=== PATIENT | female | born 1975 | race African-American/Black ===

== ENCOUNTER 2017-11-22 21:33 | Emergency (ER) | payer OTHER ==
[~2017-11-22 21:33] MED LIST: COLA100C5 PO
[2017-11-22 21:36] VITALS: BP 112/84; PULSE 100; RESP 16; TEMP 98.8; O2SAT 99
[2017-11-22] MEDS ORDERED: BACT800T5 PO (21:55)
[2017-11-22] MEDS ORDERED: MAXA10TA2 PO (21:55)
[2017-11-22] MEDS ORDERED: ACETAMINOPHEN/HYDROcodone 325 MG/5 MG TAB PO ONE (23:45)
[2017-11-22] MEDS ORDERED: CLINDAMYCIN 600 MG/NS PREMIX 50 ML IV ONE (23:45)
--- NOTE | 2017-11-22 23:46 | PD ---
HPI Chief Complaint: Skin Problem Time Seen by Provider: 23:26 Travel History International Travel<30 days: No Contact w/Intl Traveler<30days: No Traveled to known affect area: No History of Present Illness HPI 42-year-old black female presents to emergency department with a complaint of a skin infection under her right breast for the past week. She was seen by her doctor on Tuesday who started her on Bactrim and squeezed the area and collected a culture. Patient states that the area has become increasingly tender. She has had some subjective fever. She denies any nausea vomiting. No abdominal pain or urinary symptoms. Patient does have a history of the lump on her left breast which was excised but she does not know exactly what it was but she knows of that it was benign. Patient denies any history of skin infections in the past. Symptoms are mild. No alleviating symptoms. No exacerbating symptoms. PFSH Past Medical History Migraines: Yes Tetanus Vaccination: < 5 Years Influenza Vaccination: No ?: Not LMP: Today Past Surgical History Section: Yes (1994) Other Surgery: Yes (LEFT BREAST LUMPECTOMY 2010) Social History Alcohol Use: No Tobacco Use: No Substance Use: No Allergies-Medications (Allergen,Severity, Reaction): Coded Allergies: No Known Allergies (Unverified , 09/22/17) Reported Meds & Prescriptions Reported Meds & Active Scripts Active Colace (Docusate Sodium) 100 Mg Capsule 1 Cap PO BID 14 Days Reported Maxalt (Rizatriptan Benzoate) 10 Mg Tab 10 Mg PO Bactrim DS (Sulfamethoxazole-Trimethoprim) 800-160 Mg Tab 1 Tab PO BID Review of Systems Except as stated in HPI: all other systems reviewed are Neg Physical Exam Narrative GENERAL: This is a well-nourished, well-developed patient, in no apparent distress. Patient is examined with a female nurse. SKIN: The patient has an area of erythema, warmth and induration under the right breast. There is a small nidus which appears to be a infected sebaceous cyst. There is no fluctuance. The area measures approximately 3 x 3 cm. HEAD: Atraumatic. Normocephalic. EYES: PERRL, EOMI, no discharge or injection. No scleral icterus. EARS: Clear NOSE: Nasal turbinates appear normal. THROAT: Mucosa pink and moist. Airway patent. NECK: Trachea midline. supple, moves head freely. LUNGS: Clear to auscultation. CV: Regular in rhythm. ABDOMEN: Soft nontender. EXT: No clubbing cyanosis or edema. Data Data Last Documented VS Vital Signs Date Time Temp Pulse Resp B/P (MAP) Pulse Ox O2 Delivery O2 Flow Rate FiO2 11/22/17 21:36 98.8 100 16 112/84 (93) 99 Orders Orders Iv Access Insert/Monitor (11/22/17 23:31) Complete Blood Count With Diff (11/22/17 23:31) Basic Metabolic Panel (Bmp) (11/22/17 23:31) Clindamycin 600 Mg/Ns Premix (Cleocin 60 (11/22/17 23:45) Acetamin-Hydrocod 325-5 Mg ([place] 5-325 (11/22/17 23:45) MDM Medical Decision Making Medical Screen Exam Complete: Yes Emergency Medical Condition: Yes Medical Record Reviewed: Yes Differential Diagnosis MDM: High Differential diagnoses: Abscess, folliculitis, cellulitis, lymphangitis, abrasion, contact dermatitis Narrative Course IV access is obtained. CBC chemistry ordered. Patient given clindamycin 600 mg IV. Lortab 5 mg by mouth. Patient appears to have a infected sebaceous cyst. At this time the patient is currently on Bactrim DS. We will add and clindamycin and have her follow-up with her family doctor or plastics surgeon for reevaluation. Diagnosis Primary Impression: Infected sebaceous cyst Patient Instructions: Narcotic given in the ED, General Instructions Med/Other Pt SpecificInfo: Prescription(s) given, Wound Care Disposition: 01 DISCHARGE HOME Condition: Stable Harjeet Mead Nov 22, 2017 23:46
[2017-11-23 00:42] LABS: BICARBONATE 28.5 MEQ/L (21.0-32.0); CREATININE 1.11 MG/DL (0.50-1.00)
[2017-11-23 01:09] LABS: AUTOMATED NEUTROPHIL # 2.6 TH/MM3 (1.8-7.7); BASOPHIL # 0.1 TH/MM3 (0-0.2); EOSINOPHIL # 0.1 TH/MM3 (0-0.4); EOSINOPHIL % 2.9 % (0.0-4.0); HEMATOCRIT 35.6 % (35.0-46.0); HEMOGLOBIN 12.1 GM/DL (11.6-15.3); LYMPH % 35.9 % (9.0-44.0); LYMPHOCYTE # 1.8 TH/MM3 (1.0-4.8); MEAN CELL VOLUME 87.7 FL (80.0-100.0); MEAN CORPUSCULAR HEMOGLOBIN 29.7 PG (27.0-34.0); MEAN CORPUSCULAR HGB CONC 33.9 % (32.0-36.0); MEAN PLATELET VOLUME 8.4 FL (7.0-11.0); MONO % 8.3 % (0.0-8.0); MONOCYTE # 0.4 TH/MM3 (0-0.9); NEUT % 51.9 % (16.0-70.0); PLATELET COUNT 277 TH/MM3 (150-450); RED BLOOD COUNT 4.06 MIL/MM3 (4.00-5.30); RED CELL DISTRIBUTION WIDTH 14.3 % (11.6-17.2)
[2017-11-23] MEDS ORDERED: CLEO300C2 PO (01:13)
[2017-11-23] MEDS ORDERED: NORC5TAB PO (01:13)
== END 2017-11-23 01:49 | disposition home or self-care (01) ==
LOC: NEPD 21:33
DX: L72.3 Sebaceous cyst (principal); L08.9 Local infection of the skin and subcutaneous tissue, unspecified
CPT/HCPCS: 80048; 85025; 96374